=== PATIENT | female | born 1990 | race Caucasian/White ===

== ENCOUNTER 2021-06-22 16:41 | Emergency (ER) | payer SELFPAY ==
[~2021-06-22] VITALS: Ht 167.6 cm; Wt 60.0 kg
[2021-06-22 16:45] VITALS: BP 119/78
== END 2021-06-22 18:19 | disposition left against medical advice (07) ==
LOC: ER 16:41
DX: F10.129 Alcohol abuse with intoxication, unspecified (principal); Y90.0 Blood alcohol level of less than 20 mg/100 ml
CPT/HCPCS: 99283